=== PATIENT | female | born 1990 | race Caucasian/White ===

== ENCOUNTER 2021-01-18 07:02 | Emergency (ER) | payer OTHER ==
[~2021-01-18] VITALS: Ht 160 cm; Wt 58.6 kg
[2021-01-18 07:34] VITALS: BP 146/68
== END 2021-01-18 07:50 | disposition home or self-care (01) ==
LOC: EMS 07:02
DX: B35.3 Tinea pedis (principal)
CPT/HCPCS: 99282; Z7502